=== PATIENT | female | born 1995 | race Two or more races ===

== ENCOUNTER 2018-07-05 08:36 | Day surgery (SDC) | payer OTHER ==
[2018-07-05] MEDS ORDERED: CEFAZOLIN 1 GM/D5W RTU 1 GM/50 ML RTUPB IV PRN (08:48)
[2018-07-05] MEDS ORDERED: CEFAZOLIN 1 GM/D5W RTU 1 GM/50 ML RTUPB IV ONE (08:49)
[2018-07-05] MEDS ORDERED: LIDOCAINE 1% INJ-PF (10 MG/ML) 30 ML SDV ONE (09:31)
[2018-07-05 09:50] LABS: HEMATOCRIT 33.4 % (36.0-47.0); HEMOGLOBIN 11.5 g/dL (12.0-15.5); MEAN CORPUSCULAR HEMOGLOBIN 29.8 pg (27.0-33.4); MEAN CORPUSCULAR HGB CONC 34.4 g/dL (32.0-36.0); MEAN CORPUSCULAR VOLUME 87 fl (80-97); PLATELET COUNT 244 10^3/uL (150-450); RED BLOOD COUNT 3.85 10^6/uL (3.72-5.28); RED CELL DISTRIBUTION WIDTH 13.4 % (11.5-14.0); WHITE BLOOD COUNT 7.9 10^3/uL (4.0-10.5)
[2018-07-05 10:17] LABS: ALANINE AMINOTRANSFERASE 48 U/L (9-52); ALBUMIN 4.2 g/dL (3.5-5.0); ALKALINE PHOSPHATASE 55 U/L (38-126); ANION GAP 8 (5-19); ASPARTATE AMINO TRANSFERASE 51 U/L (14-36); BILIRUBIN,DIRECT 0.1 mg/dL (0.0-0.4); BILIRUBIN,TOTAL 0.3 mg/dL (0.2-1.3); BLOOD UREA NITROGEN 18 mg/dL (7-20); CALCIUM 9.7 mg/dL (8.4-10.2); CARBON DIOXIDE 25 mmol/L (22-30); CHLORIDE 106 mmol/L (98-107); GLUCOSE 85 mg/dL (75-110); POTASSIUM 4.4 mmol/L (3.6-5.0); SODIUM 138.9 mmol/L (137-145); TOTAL PROTEIN 7.1 g/dL (6.3-8.2)
[2018-07-05] MEDS ORDERED: FENTANYL CITRATE INJ/PF 100 MCG/2 ML AMPUL ONE (10:35)
[2018-07-05] MEDS ORDERED: MIDAZOLAM 2 MG/2 ML INJ ONE (10:35)
[2018-07-05] MEDS ORDERED: PROPOFOL INJ 200 MG/20 ML VIAL IV ONE (10:36)
[2018-07-05] MEDS ORDERED: MEPERIDINE HCL/PF INJ 25 MG/1 ML DISP.SYRIN IV PRN (11:12)
[2018-07-05] MEDS ORDERED: PROMETHAZINE HCL INJ 25 MG/1 ML VIAL IV PRN ×3 (11:12→11:56)
[2018-07-05] MEDS ORDERED: FENTANYL CITRATE INJ/PF 100 MCG/2 ML AMPUL IV PRN ×3 (11:12)
[2018-07-05] MEDS ORDERED: MORPHINE SULFATE 10 MG/ML INJ IV PRN (11:12)
[2018-07-05] MEDS ORDERED: DIPHENHYDRAMINE HCL 50 MG/ML VIAL IV PRN (11:12)
[2018-07-05] MEDS ORDERED: ACETAMINOPHEN 1,000 MG/100 ML RTUPB IV ONE (11:33)
[2018-07-05] MEDS ORDERED: KETOROLAC TROMETHAMINE INJ/PF 30 MG/1 ML SDV ONE (11:33)
[2018-07-05] MEDS ORDERED: OXYCODONE-ACETAMINOPHEN 5-325 MG TABLET PO PRN ×2 (11:55)
[2018-07-05] MEDS ORDERED: OXYCODONE-ACETAMINOPHEN 5-325 MG TABLET ONE (12:00)
--- NOTE | 2018-07-05 12:06 | OPERATIVE REPORT E ---
Operative Report NAME: OLIVIA PATEL : 1995 AGE: 22Y DATE OF SURGERY: 07/05/2018 ROOM: PREOPERATIVE DIAGNOSIS: INCOMPLETE . POSTOPERATIVE DIAGNOSIS: INCOMPLETE . OPERATION: Suction D and C. SURGEON: MELISSA GIL M.D. ANESTHESIA: Monitored anesthesia care with local. ESTIMATED BLOOD LOSS: Negative PERTINENT HISTORY AND OPERATIVE FINDINGS: This is a 22-year-old multi who had a miscarriage and [place] continued to have bleeding and problems, ultimately came to our office. We did an ultrasound. There appeared to be retained products of conception on the ultrasound and after hearing the various approaches, she elected to return to the OR for a suction D and C. At the time of surgery, there was blood in the vagina. The cervix was dilated. There was blood in the os. There was some tissue up inside of the uterus. Adnexa was negative. Uterus was obviously slightly increased in size. PROCEDURE: The patient was brought into the OR, placed on the table in a supine position, and sedated. She was then repositioned in the dorsal lithotomy position, prepped and draped in a sterile fashion. A pelvic under anesthesia was done after emptying the bladder of approximately 20 mL of clear urine. Having accomplished that, a bivalve speculum was inserted. The cervix was grasped on its anterior lip with an Allis. It was dilated to a #10 dilator and then the curetted with a #10 suction curette. Minimal tissue was returned. We did clear out the uterine cavity with a medial size sharp curette. Normal tissue was returned. We did one more sweep through the uterus using the suction curette. There was no more tissue to be returned. This terminated the procedure. The Allis was removed from the anterior lip of the cervix. There was no evidence of active bleeding. The bivalve speculum was removed. The patient was placed back in the supine position and anesthesia was discontinued. She was transferred to the recovery room in satisfactory condition. Negligible blood loss once again. FINAL DIAGNOSIS: INCOMPLETE . DICTATING PHYSICIAN: MELISSA GIL M.D. [id number] PHY#: [id number] ID: [id number] JOB#: [id number] ACCT: [id number] cc:MELISSA GIL M.D. >
[2018-07-05 12:53] VITALS: BP 104/71
--- NOTE | 2018-07-10 11:30 | OPERATIVE REPORT E ---
Operative Report NAME: OLIVIA PATEL : 1995 AGE: 22Y DATE OF SURGERY: 07/05/2018 ROOM: PREOPERATIVE DIAGNOSIS: INCOMPLETE . POSTOPERATIVE DIAGNOSIS: INCOMPLETE . OPERATION: Suction D and C. SURGEON: MELISSA GIL M.D. ANESTHESIA: Monitored anesthesia care. ESTIMATED BLOOD LOSS: 50 mL PERTINENT HISTORY AND OPERATIVE FINDINGS: This is a 22-year-old multiparous white female whose last menstrual period was 03/10/2018. She eventually had problems with bleeding. Went on to have a D and C at [facility] with removal of prior conception. However, continued to have bleeding and discomfort. Ultimately came to see us. We did an ultrasound which revealed incomplete AB. Talked to patient and her . She was also anemic at this point in time and wanted to proceed with the surgery. She had already been on Methergine and pain medicine and it did not seem to be helping her. At the time of surgery, there was blood clots in the vagina. The cervix was dilated. There were blood clots. Uterus was mid-plane, slightly increased in size, about 6 weeks uterus. Adnexa was negative. OPERATIVE PROCEDURE: The patient was brought into the operating room and placed on the table in a supine position, sedated. Repositioned in the dorsal lithotomy position, prepped and draped in a sterile fashion. Bladder was emptied of urine and then a pelvic under anesthesia was performed with the above findings. Advanced speculum was inserted. The cervix was grasped on its anterior lip with an Allis. It easily dilated up to an 10 Avril dilator. Then using a suction curette, the contents of the uterus were removed. Having accomplished this. The suction curette was disenabled and a medium size sharp curette was used to curette the lining. There was no further tissue removed. This terminated procedure. Equipment was removed. Anesthesia was discontinued. Patient was placed back in a supine position, transferred to recovery room in satisfactory condition. At the time of surgery estimated blood loss was about 50 mL. She tolerated the procedure well. DICTATING PHYSICIAN: MELISSA GIL M.D. [id number] PHY#: [id number] ID: [id number] JOB#: [id number] ACCT: [id number] cc:MELISSA GIL M.D. >
== END 2018-07-05 13:05 | disposition home or self-care (01) ==
LOC: OROUT 08:36
PROVIDERS: ATTEND Obstetrics & Gynecology
DX: O03.4 Incomplete spontaneous abortion without complication (principal)
CPT/HCPCS: 86900; 86901; 36415; 86850; 84702; 85027; 80053; 88305 ×2; 59812; J2250; J0690; J3010; J1885; J2704; J0131; 1965; J3490